=== PATIENT | male | born 2000 | race Caucasian/White ===

== ENCOUNTER 2019-05-31 17:47 | Emergency (ER) | payer BC, OTHER ==
[~2019-05-31] VITALS: Ht 167.6 cm; Wt 80.6 kg
[2019-05-31 18:30] VITALS: BP 140/68
--- NOTE | 2019-05-31 18:56 | PHYS DOC ---
Past Medical History Past Medical History: No Pertinent History Past Surgical History: Other Additional Past Surgical Histo: hernia Smoking Status: Never Smoker Alcohol Use: None Adult General Chief Complaint Chief Complaint: COUGH HPI HPI Patient is a 18 year old male patient who presents to the ED today complaining of a productive cough with subjective fevers intermittently since the beginning of May. Patient denies any nasal congestion. Denies any chest pain but states when he coughs hard he becomes short of air. Review of Systems Review of Systems Constitutional: Reports subjective fevers Eyes: Denies change in visual acuity, redness, or eye pain [] HENT: Denies nasal congestion or sore throat [] Respiratory: Reports cough and shortness of breath [] Cardiovascular: No additional information not addressed in HPI [] GI: Denies abdominal pain, nausea, vomiting, bloody stools or diarrhea [] : Denies dysuria or hematuria [] Musculoskeletal: Denies back pain or joint pain [] Integument: Denies rash or skin lesions [] Neurologic: Denies headache, focal weakness or sensory changes [] All other systems were reviewed and found to be within normal limits, except as documented in this note. Allergies Allergies Allergies Coded Allergies Type Severity Reaction Last Updated Verified No Known Drug Allergies 05/31/19 No Physical Exam Physical Exam Constitutional: Well developed, well nourished, no acute distress, non-toxic appearance. [] HENT: Normocephalic, atraumatic, bilateral external ears normal, oropharynx moist, no oral exudates, nose normal. [] Eyes: PERRLA, EOMI, conjunctiva normal, no discharge. [] Neck: Normal range of motion, no tenderness, supple, no stridor. [] Cardiovascular:Heart rate regular rhythm, no murmur [] Lungs & Thorax: Bilateral breath sounds clear to auscultation [] Abdomen: Bowel sounds normal, soft, no tenderness, no masses, no pulsatile masses. [] Skin: Warm, dry, no erythema, no rash. [] Back: No tenderness, no CVA tenderness. [] Extremities: No tenderness, no cyanosis, no clubbing, ROM intact, no edema. [] Neurologic: Alert and oriented X 3, normal motor function, normal sensory function, no focal deficits noted. [] Psychologic: Affect normal, judgement normal, mood normal. [] Current Patient Data Vital Signs Vital Signs Date Time Temp Pulse Resp B/P (MAP) Pulse Ox O2 Delivery O2 Flow Rate FiO2 05/31/19 18:30 97.9 102 16 140/68 (92) 98 Room Air 97.9 EKG EKG [] Radiology/Procedures Radiology/Procedures [] Course & Med Decision Making Course & Med Decision Making Pertinent Labs and Imaging studies reviewed. (See chart for details) This is a 18-year-old male patient presenting to the ED today with cough and subjective fevers as well as intermittent shortness of breath while coughing, symptoms began 1 week ago. Patient is afebrile in the ED. chest x-ray interpreted by Dr. Webb is negative for any acute findings. OTC remedies recommended. Discharge to home. Follow-up with PCP in 1 to 2 weeks Patsy Disclaimer Dragon Disclaimer This electronic medical record was generated, in whole or in part, using a voice recognition dictation system. Departure Departure Impression: Primary Impression: Cough Additional Impression: Fever Disposition: 01 HOME, SELF-CARE Condition: STABLE Referrals: NO PCP (PCP) Follow-up in 1 to 2 weeks Patient Instructions: Cough, Adult, [id number], Fever, Adult Additional Instructions: You were evaluated in the emergency room, your chest x-ray was negative for any acute findings, take Tylenol/Motrin for pain or fever. You can use [id number] cough remedies as needed. Follow-up with your doctor in 1 to 2 weeks. Problem Qualifiers Additional Impression: Fever Fever type: unspecified Qualified Codes: R50.9 - Fever, unspecified ENRIQUE MONTIEL APRN May 31, 2019 18:56
--- NOTE | 2019-05-31 19:58 | RAD ---
Exam: Chest 2 views INDICATION: Cough TECHNIQUE: Frontal and lateral views the chest Comparisons: None FINDINGS: The cardiomediastinal silhouette and pulmonary vessels are within normal limits. The lung and pleural spaces are clear. IMPRESSION: No acute cardiopulmonary process. Electronically signed by: Parth Valencia MD (05/31/2019 7:56 PM) [id number]
== END 2019-05-31 19:56 | disposition home or self-care (01) ==
LOC: ER 17:47
DX: R05 Cough (principal); R50.9 Fever, unspecified
CPT/HCPCS: 71046; 99283